=== PATIENT | male | born 1970 | race Caucasian/White ===

== ENCOUNTER 2020-10-12 08:40 | Outpatient (CLI) | payer OTHER, SELFPAY ==
--- NOTE | 2020-10-12 08:45 | USCV_ITS ---
Tree Fallon Age: 50 Gender: M : 1970 Exam Date: 10/12/2020 09:12 Ordering Phys: Rodo Irwin M.D ([email or web address]) Technologist: Sugey Madrid Exam Location: [facility] [place] Indication: AORTIC ROOT ENLARGEMENT BP: 140 / 70 HR: 61 Rhythm: Sinus Technical Quality: Adequate MEASUREMENTS (Male / Female) Normal Values 2D ECHO LV Diastolic Diameter PLAX 4.1 cm 4.2 - 5.9 / 3.9 - 5.3 cm LV Systolic Diameter PLAX 3.3 cm LV Chamber Size 4.7 cm IVS Diastolic Thickness 1.2 cm 0.6 - 1.0 / 0.6 - 0.9 cm IVS Systolic Thickness 1.6 cm LVPW Diastolic Thickness 1.1 cm 0.6 - 1.0 / 0.6 - 0.9 cm LVPW Systolic Thickness 1.6 cm RV Chamber Size 4.3 cm LVOT Diameter 2.0 cm LV Ejection Fraction 2D Teich 39.4 % LV Ejection Fraction MOD 2C 54.6 % LV Ejection Fraction 2C AL 54.2 % LA Diameter 3.8 cm LA Width 3.7 cm LA Height 3.4 cm RA Width 3.1 cm RA Height 4.7 cm Aorta at Sinotubular Diameter 3.7 cm M-MODE LV Diastolic Diameter MM 5.0 cm 4.2 - 5.9 / 3.9 - 5.3 cm LV Systolic Diameter MM 3.0 cm LV Ejection Fraction MM Teich 70.4 % IVS Diastolic Thickness MM 0.8 cm 0.6 - 1.0 / 0.6 - 0.9 cm IVS Systolic Thickness MM 1.5 cm LVPW Diastolic Thickness MM 1.3 cm 0.6 - 1.0 / 0.6 - 0.9 cm LVPW Systolic Thickness MM 1.6 cm RV Diastolic Diameter MM 1.6 cm Aortic Annulus Diameter 4.0 cm LA Ao Ratio MM 0.9 MV E Point Septal Separation 0.5 cm DOPPLER AV Peak Velocity 105.0 cm/s LVOT Peak Velocity 95.0 cm/s AV Area Cont Eq vti 3.0 cm squared AV Area Cont Eq pk 2.9 cm squared MV Area PHT 3.5 cm squared Mitral E to A Ratio 1.3 MV E' Velocity 43.0 cm/s Mitral E to MV E' Ratio 7.3 Mitral E to LV E' Lateral Ratio 6.6 Mitral E to LV E' Septal Ratio 8.1 TR Peak Velocity 173.8 cm/s TR Peak Gradient 12.1 mmHg TR Mean Velocity 145.5 cm/s TR Mean Gradient 9.1 mmHg TR Velocity Time Integral 64.8 cm TV Peak E Velocity 70.0 cm/s Right Atrial Pressure 3.0 mmHg Pulmonary Artery Systolic Pressu 15.1 mmHg PV Peak Velocity 51.0 cm/s RV Acceleration Time 0.2 s RV Ejection Time 0.4 s RV AcT/ET 0.5 FINDINGS Left Ventricle Normal left ventricular size, systolic function and wall thickness, with no regional wall motion abnormalities. LVEF is 50 to 55%. Normal left ventricular wall thickness. Normal diastolic filling pattern. Right Ventricle The right ventricle is normal in size and function. Right Atrium The right atrium is normal in size. Left Atrium The left atrium is normal in size. Mitral Valve Structurally normal mitral valve without significant stenosis or prolapse. There is no mitral regurgitation. Aortic Valve Structurally normal aortic valve without significant sclerosis or stenosis. There is mild aortic regurgitation. Tricuspid Valve Structurally normal tricuspid valve without significant stenosis or regurgitation. Insufficient TR jet to calculate RVSP. Pulmonic Valve Structurally normal pulmonic valve without significant stenosis. There is no pulmonic regurgitation. Pericardium Normal pericardium without effusion. Aorta Ascending aorta is dilated with maximum diameter noted to be 4.7 cm. CONCLUSIONS LV systolic function is normal with EF of 50 to 55%. Normal diastolic function. Ascending aorta is dilated with maximal diameter noted to be 4.7 cm. There is only a stress echocardiogram from 06/17/2016 for comparison, at that time LVEF was reported to be normal and aortic root was normal sized. Rodo Irwin MD (Electronically Signed) Final Date: 23 October 2020 11:08 S
== END 2020-10-12 08:41 | disposition home or self-care (01) ==
LOC: RAD 08:52
PROVIDERS: PCP Nurse Practitioner; Visit Provider Internal Medicine
DX: I71.2 Thoracic aortic aneurysm, without rupture (principal)
CPT/HCPCS: 93306

== ENCOUNTER → 2022-05-15 10:43 | Outpatient (BNVA) | payer OTHER, SELFPAY | PROVIDERS: PCP Nurse Practitioner; Visit Provider Nurse Practitioner | DX: M17.11 Unilateral primary osteoarthritis, right knee (principal); M25.561 Pain in right knee | CPT/HCPCS: 73562 ==